=== PATIENT | female | born 1970 | race Caucasian/White ===

== ENCOUNTER 2018-11-09 14:22 | Observation (INO) | payer OTHER ==
[~2018-11-09] VITALS: Ht 167.6 cm; Wt 157.8 kg
[~2018-11-09 14:22] MED LIST: ASPI325 PO; ATOR40TA; Keflex500 MG PO; METF500C; METF500C PO; METO50ER; METO50ER PO; Synthroid50 MCG PO; Synthroid75 MCG; Venlafaxine HCl50 MG PO; ZESTORETIC 20-1 EACH PO
[2018-11-09 15:28] LABS: BASOPHILS ABSOLUTE AUTO 0.06 K/mm3 (0.00-0.23); BASOPHILS PERCENT AUTO 0 % (0-2); EOSINOPHILS ABSOLUTE AUTO 0.07 K/mm3 (0.00-0.68); EOSINOPHILS PERCENT AUTO 0 % (0-6); Hematocrit 44.4 % (33.0-51.0); Hemoglobin 13.9 g/dL (11.5-16.0); IMMATURE GRAN ABSOLUTE AUTO 0.09 K/mm3 (0.00-0.10); IMMATURE GRAN PERCENT AUTO 1 % (0-1); LYMPHOCYTES ABSOLUTE AUTO 2.85 K/mm3 (0.84-5.20); LYMPHOCYTES PERCENT AUTO 17 % (21-46); MONOCYTES PERCENT AUTO 6 % (4-13); Mean Corpuscular HGB 28.2 pg (26.0-34.0); Mean Corpuscular HGB Conc 31.3 g/dL (31.5-36.5); Mean Corpuscular Volume 90 fL (80-100); Mean Platelet Volume 9.3 fL (9.1-12.4); NEUTROPHILS ABSOLUTE AUTO 12.52 K/mm3 (1.96-9.15); NEUTROPHILS PERCENT AUTO 76 % (41-73); Platelet Count 296 K/mm3 (150-400); RDW Coefficient Variation 14.3 % (11.7-14.2); RDW Standard Deviation 46.5 fL (35.1-46.3); Red Blood Cell Count 4.93 M/mm3 (3.80-5.20); White Blood Cell Count 16.59 K/mm3 (4.00-11.30)
[2018-11-09 15:51] LABS: Alanine Aminotransfer (ALT/SGP 21 U/L (12-78); Albumin, Blood 3.7 g/dL (3.4-5.0); Albumin/Globulin Ratio 0.8 (0.8-1.8); Alk Phos 134 U/L (50-136); Anion Gap 9 mmol/L (6-16); Aspartate Aminotrans (AST/SGOT 22 U/L (12-37); Bilirubin, Total 1.1 mg/dL (0.1-1.0); Blood Urea Nitrogen 15 mg/dL (8-24); Bun/Creatinine Ratio 19.8 (12.0-20.0); CO2, Blood 29 mmol/L (21-32); Calcium, Blood 9.2 mg/dL (8.5-10.1); Chloride, Blood 100 mmol/L (98-108); Creatinine, Blood 0.76 mg/dL (0.40-1.00); Globulin, Blood 4.5 g/dL (2.2-4.0); Glomerular Filtration Rate >60 (60-); Glucose, Blood 201 mg/dL (70-99); Potassium, Blood 4.1 mmol/L (3.5-5.5); Sodium, Blood 138 mmol/L (136-145); Total Protein, Blood 8.2 g/dL (6.4-8.2)
[2018-11-09] MEDS ORDERED: TRAZ50 PO (16:55)
[2018-11-09] MEDS ORDERED: PANT40 PO (16:55)
[2018-11-09] MEDS ORDERED: MONT10T PO (16:55)
[2018-11-09 16:57] LABS: Source, Urine Clean Catch
[2018-11-09 17:15] LABS: Appearance, Urine Clear (Clear); Bilirubin, Urine Neg (Neg); Blood, Urine 1+ (Neg); Color, Urine Yellow (P-Yellow); Glucose Qualitative, Urine Neg (Neg); Ketones, Urine Neg (Neg); Leukocyte Esterase, Urine Neg (Neg); Nitrite, Urine Neg (Neg); Protein, Urine 3+ (Neg); Urobilinogen, Urine NORM (Normal)
[2018-11-09 17:42] LABS: Amorphous Light ({null, 0-Heavy}); Bacteria Mod /hpf; Squamous Epithelial Cells Mod /hpf (Few)
[2018-11-09] MEDS ORDERED: ASPI81CH PO (22:40)
[2018-11-10 05:02] LABS: BASOPHILS ABSOLUTE AUTO 0.05 K/mm3 (0.00-0.23); BASOPHILS PERCENT AUTO 1 % (0-2); EOSINOPHILS ABSOLUTE AUTO 0.09 K/mm3 (0.00-0.68); EOSINOPHILS PERCENT AUTO 1 % (0-6); Hematocrit 39.7 % (33.0-51.0); Hemoglobin 12.1 g/dL (11.5-16.0); IMMATURE GRAN ABSOLUTE AUTO 0.04 K/mm3 (0.00-0.10); IMMATURE GRAN PERCENT AUTO 0 % (0-1); LYMPHOCYTES ABSOLUTE AUTO 3.01 K/mm3 (0.84-5.20); LYMPHOCYTES PERCENT AUTO 28 % (21-46); MONOCYTES ABSOLUTE AUTO 0.87 K/mm3 (0.16-1.47); MONOCYTES PERCENT AUTO 8 % (4-13); Mean Corpuscular HGB 28.7 pg (26.0-34.0); Mean Corpuscular HGB Conc 30.5 g/dL (31.5-36.5); Mean Corpuscular Volume 94 fL (80-100); Mean Platelet Volume 9.5 fL (9.1-12.4); NEUTROPHILS ABSOLUTE AUTO 6.78 K/mm3 (1.96-9.15); NEUTROPHILS PERCENT AUTO 63 % (41-73); Platelet Count 237 K/mm3 (150-400); RDW Coefficient Variation 14.6 % (11.7-14.2); RDW Standard Deviation 49.9 fL (35.1-46.3); Red Blood Cell Count 4.22 M/mm3 (3.80-5.20); White Blood Cell Count 10.84 K/mm3 (4.00-11.30)
[2018-11-10 05:43] LABS: Anion Gap 9 mmol/L (6-16); Blood Urea Nitrogen 14 mg/dL (8-24); Bun/Creatinine Ratio 18.9 (12.0-20.0); CO2, Blood 27 mmol/L (21-32); Calcium, Blood 8.2 mg/dL (8.5-10.1); Chloride, Blood 104 mmol/L (98-108); Creatinine, Blood 0.74 mg/dL (0.40-1.00); Glomerular Filtration Rate >60 (60-); Glucose, Blood 188 mg/dL (70-99); Sodium, Blood 140 mmol/L (136-145)
--- NOTE | 2018-11-10 05:50 | NUR ---
SHIFT SUMMARY PT ARRIVED TO ROOM APPROX 2200 OR SO. A/O INDEPENDENT TO BA. TRIED CPAP C 2L BLED IN FOR A LITTLE BIT BUT COUDN'T TOLERATE IT AND TOOK IT OFF. DESATS WHEN SLEEPING SO PUT 2L NC ON TO MAINTAIN SATS >90. NO C/O PAIN. MID ABD RED RASH LOOKING.
--- NOTE | 2018-11-10 08:46 | NUR ---
ASSUMED CRE OF PT- BEDSIDE REPORT COMPLETE WITH NIGHT SAVITA LOVE. PER REPORT PT ADMITTED FOR CELLULITIS OF THE ABD. PT SHOWED STAFF THE RED HOT AREA ON HER ABD. PT HAS ORDERS FOR PO AND IV ABX. PT HAS Hx HTN MEDICATED WITH MORNING BP MEDS. PT STATED SHE DOES NOT HAVE ANY YEAST IN THE ABD FOLDS, STATED SHE CLEANS DAILY AND USES TALCOM POWDER IN THE FOLDS. NOTED AN ODOR THAT SMELLED LIKE YEAST.
[2018-11-10] MEDS ORDERED: LEVSOD100 PO (10:09)
[2018-11-10] MEDS ORDERED: METF500C PO (10:10)
[2018-11-10] MEDS ORDERED: Bactrim 400-801 EACH PO (10:11)
--- NOTE | 2018-11-10 10:51 | NUR ---
DISCHARGE NOTE- PT WAS GIVEN VERBAL AND WRITTEN DISCHARGE INSTRUCTIONS AND ACKNOWLEDGED UNDERSTANDING OF THEM. IV DC'D AT THAT TIME. 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 PT WILL BE ESCORTED OUT VIA WC BY STAFF WHEN HER FAMILY ARRIVES.
== END 2018-11-10 11:12 | disposition home or self-care (01) ==
LOC: ER 14:22 → MEDS 14:23 → ENPENDDIS 11-10 09:30 → MEDS 11-10 11:12
PROVIDERS: Physician Assistant; ADMIT Hospitalist
DX: L03.316 Cellulitis of umbilicus (principal); G47.30 Sleep apnea, unspecified; E11.9 Type 2 diabetes mellitus without complications; E03.9 Hypothyroidism, unspecified; I10 Essential (primary) hypertension; K21.9 Gastro-esophageal reflux disease without esophagitis; F32.9 Major depressive disorder, single episode, unspecified; F41.9 Anxiety disorder, unspecified; Z79.899 Other long term (current) drug therapy; Z79.82 Long term (current) use of aspirin; Z23 Encounter for immunization
CPT/HCPCS: 36415; 74177; 80048; 80053; 81001; 82947; 84443; 85025; 87086; 90686; 94660; 96361; 96365; 96366; 96372; 96376; 99285-25; G0008; G0378; J0690; J1650; J7030; J7050; Q9967

== ENCOUNTER 2019-12-06 13:47 | Emergency (ER) | payer OTHER ==
[~2019-12-06] VITALS: Ht 172.7 cm; Wt 145.2 kg
[~2019-12-06 13:47] MED LIST changes: +ASPI81CH PO; +Bactrim 400-801 EACH PO; +LEVSOD100 PO; +MONT10T PO; +PANT40 PO; +TRAZ50 PO
[2019-12-06] MEDS ORDERED: Monodox100 MG PO (14:54)
== END 2019-12-06 15:29 | disposition home or self-care (01) ==
LOC: ER 13:47
DX: L02.811 Cutaneous abscess of head [any part, except face] (principal); L02.01 Cutaneous abscess of face; L02.11 Cutaneous abscess of neck; Z79.899 Other long term (current) drug therapy; Z79.82 Long term (current) use of aspirin; Z79.84 Long term (current) use of oral hypoglycemic drugs; G47.30 Sleep apnea, unspecified; I10 Essential (primary) hypertension; E11.9 Type 2 diabetes mellitus without complications; Z87.891 Personal history of nicotine dependence
CPT/HCPCS: 10060; 99283-25

== ENCOUNTER 2021-02-07 17:33 | Inpatient (IN) | payer OTHER ==
[~2021-02-07] VITALS: Ht 167.6 cm; Wt 148.0 kg
[~2021-02-07 17:33] MED LIST changes: +Monodox100 MG PO
[2021-02-07 18:54] LABS: BASOPHILS ABSOLUTE AUTO 0.09 K/mm3 (0.00-0.23); BASOPHILS PERCENT AUTO 1 % (0-2); EOSINOPHILS ABSOLUTE AUTO 0.13 K/mm3 (0.00-0.68); EOSINOPHILS PERCENT AUTO 1 % (0-6); Hematocrit 43.1 % (33.0-51.0); IMMATURE GRAN ABSOLUTE AUTO 0.15 K/mm3 (0.00-0.10); IMMATURE GRAN PERCENT AUTO 1 % (0-1); LYMPHOCYTES ABSOLUTE AUTO 3.77 K/mm3 (0.84-5.20); LYMPHOCYTES PERCENT AUTO 21 % (21-46); MONOCYTES ABSOLUTE AUTO 1.63 K/mm3 (0.16-1.47); MONOCYTES PERCENT AUTO 9 % (4-13); Mean Corpuscular HGB 28.7 pg (26.0-34.0); Mean Corpuscular HGB Conc 32.5 g/dL (31.5-36.5); Mean Corpuscular Volume 88 fL (80-100); NEUTROPHILS ABSOLUTE AUTO 11.92 K/mm3 (1.96-9.15); NEUTROPHILS PERCENT AUTO 68 % (41-73); NRBC ABSOLUTE 0.02 K/mm3 (0.00-0.02); NRBC Auto 0.1 /100 WBC (0.0-0.2); Platelet Count 361 K/mm3 (150-400); RDW Coefficient Variation 13.9 % (11.7-14.2); RDW Standard Deviation 45.2 fL (35.1-46.3); Red Blood Cell Count 4.88 M/mm3 (3.80-5.20); White Blood Cell Count 17.69 K/mm3 (4.00-11.30)
[2021-02-07 19:25] LABS: Alanine Aminotransfer (ALT/SGP 16 U/L (12-78); Albumin, Blood 3.1 g/dL (3.4-5.0); Albumin/Globulin Ratio 0.6 (0.8-1.8); Alk Phos 178 U/L (50-136); Anion Gap 5 mmol/L (6-16); Aspartate Aminotrans (AST/SGOT 38 U/L (12-37); Bilirubin, Total 1.1 mg/dL (0.1-1.0); Blood Urea Nitrogen 10 mg/dL (8-24); Bun/Creatinine Ratio 10.7 (12.0-20.0); CO2, Blood 29 mmol/L (21-32); Calcium, Blood 9.3 mg/dL (8.5-10.1); Chloride, Blood 97 mmol/L (98-108); Creatinine, Blood 0.93 mg/dL (0.40-1.00); Globulin, Blood 5.1 g/dL (2.2-4.0); Glomerular Filtration Rate >60 (60-); Glucose, Blood 460 mg/dL (70-99); Potassium, Blood 4.4 mmol/L (3.5-5.5); Sodium, Blood 131 mmol/L (136-145); Total Protein, Blood 8.2 g/dL (6.4-8.2)
[2021-02-07] MEDS ORDERED: METF500 PO (20:02)
[2021-02-07] MEDS ORDERED: TRAM50 PO (20:03)
[2021-02-07] MEDS ORDERED: ALBU90OI INH (20:05)
[2021-02-07] MEDS ORDERED: Flovent 220 Ora12 GM INH (20:05)
[2021-02-07 23:02] LABS: Source, Urine Catheter
[2021-02-07 23:05] LABS: Bilirubin, Urine Neg (Neg); Blood, Urine 1+ (Neg); Glucose Qualitative, Urine 4+ (Neg); Ketones, Urine 1+ (Neg); Leukocyte Esterase, Urine Neg (Neg); Nitrite, Urine Neg (Neg); Protein, Urine 2+ (Neg); Urobilinogen, Urine NORM (Normal)
--- NOTE | 2021-02-07 23:06 | NUR ---
REPORT RECIEVED FROM MITUL DURBIN RN AT 2305 AND AWAITING PT ARRIVAL TO ROOM 356.
[2021-02-07 23:10] LABS: Appearance, Urine Clear (Clear); Color, Urine Yellow (P-Yellow)
[2021-02-07 23:11] LABS: Bacteria Mod /hpf; Red Blood Cells, Urine 0-2 /hpf (0-2); Squamous Epithelial Cells Mod /hpf (Few)
--- NOTE | 2021-02-07 23:20 | NUR ---
PT T/F TO ROOM 356 VIA MACIEJ AT 2316. SHE'S A/OX4, SPECIFIES NEEDS AND DEMONSTRATED ABILITY TO SAFELY AMBULATE IN ROOM AD LACHO. PT ORIENTED TO ROOM AND CALL SYSTEM AND AWARE TO CALL FOR ASSIST PRN. WILL COMPLETE ADMISSION AND WOUND/ABSCESS DOCUMENTATION MOMENTARILY. PT DENIES CURRENT NEEDS.
[2021-02-07] MEDS ORDERED: ASPI81CH PO (23:57)
[2021-02-07] MEDS ORDERED: LORA10ER PO (23:57)
--- NOTE | 2021-02-08 00:03 | NUR ---
CBG 360 IN ER. OT NABEEL RECIEVED PER RX AT 2347 BUT WILL DISCUSS W/MANAGER FINANCIAL THE POSSIBLE NEED TO ALERT MD FOR NOVOLOG COVERAGE. PT NPO BUT ADMITS THAT'S STILL HIGH FOR HER. PT ALSO USES ALBUTEROL AND PRO AIR AT HOME AND ARRIVES WHEEZY AND SOB W/MINIMAL EXERTION. WILL ATTEMPT TO OBTAIN BD PROTOCOL WELL.
--- NOTE | 2021-02-08 00:05 | NUR ---
BD PROTOCOL OBTAINED, RT AWARE.
--- NOTE | 2021-02-08 01:40 | NUR ---
RX'D 10 UNITS NOVOLOG COVERAGE X1 FOR CBG REMAINING ELEVATED, NOW 346. ULTRAM ALSO ORDERED FOR CHRONIC BACK PAIN PER HOME REGIMEN. INSULIN AND PAIN MED RECIEVED, WILL CONTINUE Q6H CBG MONITORING FOR NPO STATUS.
--- NOTE | 2021-02-08 04:41 | NUR ---
SUMMARY: PT A/OX4, INDEPENDENT IN ROOM AND SPECIFIES NEEDS. ABSCESSES NOTED TO ANTERIOR MIDLINE OF THROAT, L.SIDE OF BACK AND L.BREAST. SHE REPORTS SPIDER BITE TO BACK DAYS AGO AND IS UNSURE OF CAUSE FOR THROAT AND BREAST ABSCESSES. ALL ARE SWOLLEN, RED, WARM AND SCABBED. THE ABSCESS TO HER BACK IS THE MOST SEVERE, W/PARTIALLY OPEN WOUND BED WEEPING SCANT AMT OF SEROSANG DRAINAGE. PHOTOS TAKEN W/WOUND DOCUMENTATION COMPLETED. ENT CX CALLED TO ANS SERVICE AND PT NPO PER ORDER. IV ABX RECIEVED AND NS COMMENCED AT 100 ML/HR X1 BAG. SHE REPORTS PAIN TO SITES AND CHRONIC BACK/HIP PAIN. ULTRAM RX'D AND RECIEVED PER HOME REGIMEN FOR TOLERABLE RELIEF. CBG'S ELEVATED THIS SHIFT. Q6H MONITORING IN PLACE FOR NPO STATUS. SEMGLEE 15 UNITS OT AND NOVOLOG 10 UNITS OT RX'D AND RECIEVED. PT TO COMMENCE NOVOLOG FATOU THIS AM. PT SOB W/EXERTION AND WHEEZING UPON ARRIVAL. BD PROTOCOL OBTAINED AND RT PROVIDED INHALER PRN. PT HAS SLEEP APNEA AT BASELINE BUT DOESN'T TOLERATE CPAP. SHE ALSO HAS USED O2 AT TIMES BUT DOESN'T HAVE RX AT PRESENT. SPO2 WNL ON RA. NO ACUTE CHANGES, VSS/AFEBRILE. WCTM AND REPORT TO DAY RN.
[2021-02-08 05:19] LABS: BASOPHILS ABSOLUTE AUTO 0.07 K/mm3 (0.00-0.23); BASOPHILS PERCENT AUTO 1 % (0-2); Hematocrit 38.8 % (33.0-51.0); Hemoglobin 12.2 g/dL (11.5-16.0); LYMPHOCYTES ABSOLUTE AUTO 2.95 K/mm3 (0.84-5.20); LYMPHOCYTES PERCENT AUTO 21 % (21-46); MONOCYTES PERCENT AUTO 11 % (4-13); Mean Corpuscular HGB 28.2 pg (26.0-34.0); Mean Corpuscular HGB Conc 31.4 g/dL (31.5-36.5); Mean Corpuscular Volume 90 fL (80-100); Mean Platelet Volume 9.9 fL (9.1-12.4); Platelet Count 283 K/mm3 (150-400); RDW Standard Deviation 46.7 fL (35.1-46.3); Red Blood Cell Count 4.32 M/mm3 (3.80-5.20); White Blood Cell Count 14.31 K/mm3 (4.00-11.30)
[2021-02-08 05:35] LABS: EOSINOPHILS PERCENT AUTO 1 % (0-6); IMMATURE GRAN PERCENT AUTO 1 % (0-1); NEUTROPHILS ABSOLUTE AUTO 9.49 K/mm3 (1.96-9.15); NEUTROPHILS PERCENT AUTO 66 % (41-73)
[2021-02-08 05:44] LABS: Alanine Aminotransfer (ALT/SGP 16 U/L (12-78); Albumin, Blood 2.6 g/dL (3.4-5.0); Albumin/Globulin Ratio 0.6 (0.8-1.8); Alk Phos 153 U/L (50-136); Anion Gap 6 mmol/L (6-16); Aspartate Aminotrans (AST/SGOT 16 U/L (12-37); Blood Urea Nitrogen 11 mg/dL (8-24); Bun/Creatinine Ratio 12.3 (12.0-20.0); CO2, Blood 30 mmol/L (21-32); Calcium, Blood 8.4 mg/dL (8.5-10.1); Chloride, Blood 98 mmol/L (98-108); Globulin, Blood 4.5 g/dL (2.2-4.0); Glomerular Filtration Rate >60 (60-); Glucose, Blood 364 mg/dL (70-99); Potassium, Blood 3.7 mmol/L (3.5-5.5); Sodium, Blood 134 mmol/L (136-145); Total Protein, Blood 7.1 g/dL (6.4-8.2)
--- NOTE | 2021-02-08 13:05 | NUR ---
Patient is lying in bed and alert. Patient tells me about her medical issues and the procedure that will take place today to deal with it. She then shares at length about her family unit complications. She talks about the of one of her sons to suicide, her mother's and the divorve from her of 27 yrs. She also shares about her living son who is schizophrenive disorder. I normalize patient's experience and provide therapeutic listening, grief support, spiritual guidance and prayer. Patient responds well and shows signs of catharsis and being encouraged. I will continue to remain available to patient and family.
[2021-02-08 13:08] LABS: Influenza A, PCR NEGATIVE (NEGATIVE); Influenza B, PCR NEGATIVE (NEGATIVE); Resp Syncytial Virus, PCR NEGATIVE (NEGATIVE); SARS-Cov-2 (COVID-19) PCR, MMC NEGATIVE (NEGATIVE)
--- NOTE | 2021-02-08 14:25 | NUR ---
History, Chart, Medications and Allergies reviewed before start of procedure. Lungs clear T/O to Auscultation. Patient confirms NPO status and agrees with scheduled surgery. Pre-Op teaching done. Pt verbalizes understanding.
--- NOTE | 2021-02-08 18:30 | NUR ---
PT A+0X4. PT PLEASANT AND COOPERTIVE TO CARE. WOUND SURGERY THIS AM TO DRAIN ABCESSES ON NECK AND BACK. STABLE VITALS FOLLOWING SURGERY AND REPORTING MINIMAL PAIN. PT INDEPENDENT TO BATHROOM AND ADLS. HIGH INSULIN LEVELS IN MORNING AND THROUGHOUT DAY MANAGED PER EMAR. PT LET IN BED WITH CALL ALARM AT SIDE
--- NOTE | 2021-02-08 18:36 | NUR ---
THIS LABORATORY IMMUNOLOGIST AGREES WITH PREVIOUS SHIFT SUMMARY BY STUDENT.
--- NOTE | 2021-02-09 05:19 | NUR ---
MAGNETOMETER OPERATOR SUMMARY PT AAOX4 AND INDEPENDENT IN ROOM. PLEASANT AND COOPERATIVE. GAUZE DRESSING CHANGED ON DRAINED ABCESS SITES ON NECK AND BACK, PREVIOUS DRESSINGS WERE SATURATED. VSS, WILL CONTINUE TO MONITOR.
[2021-02-09 08:47] LABS: BASOPHILS ABSOLUTE AUTO 0.08 K/mm3 (0.00-0.23); BASOPHILS PERCENT AUTO 1 % (0-2); EOSINOPHILS ABSOLUTE AUTO 0.64 K/mm3 (0.00-0.68); EOSINOPHILS PERCENT AUTO 6 % (0-6); Hematocrit 36.2 % (33.0-51.0); Hemoglobin 11.4 g/dL (11.5-16.0); IMMATURE GRAN ABSOLUTE AUTO 0.12 K/mm3 (0.00-0.10); IMMATURE GRAN PERCENT AUTO 1 % (0-1); LYMPHOCYTES PERCENT AUTO 23 % (21-46); MONOCYTES ABSOLUTE AUTO 1.04 K/mm3 (0.16-1.47); MONOCYTES PERCENT AUTO 9 % (4-13); Mean Corpuscular HGB 28.4 pg (26.0-34.0); Mean Corpuscular HGB Conc 31.5 g/dL (31.5-36.5); Mean Corpuscular Volume 90 fL (80-100); Mean Platelet Volume 9.9 fL (9.1-12.4); NEUTROPHILS ABSOLUTE AUTO 6.75 K/mm3 (1.96-9.15); NEUTROPHILS PERCENT AUTO 60 % (41-73); Platelet Count 288 K/mm3 (150-400); RDW Coefficient Variation 14.3 % (11.7-14.2); RDW Standard Deviation 47.5 fL (35.1-46.3); Red Blood Cell Count 4.01 M/mm3 (3.80-5.20); White Blood Cell Count 11.23 K/mm3 (4.00-11.30)
[2021-02-09 09:15] LABS: Anion Gap 7 mmol/L (6-16); Blood Urea Nitrogen 21 mg/dL (8-24); Bun/Creatinine Ratio 7.6 (12.0-20.0); CO2, Blood 26 mmol/L (21-32); Calcium, Blood 7.9 mg/dL (8.5-10.1); Chloride, Blood 98 mmol/L (98-108); Creatinine, Blood 2.77 mg/dL (0.40-1.00); Glomerular Filtration Rate 19 (60-); Glucose, Blood 417 mg/dL (70-99); Potassium, Blood 3.9 mmol/L (3.5-5.5); Sodium, Blood 131 mmol/L (136-145)
[2021-02-09 09:22] LABS: Vancomycin, Trough 30.8 ug/mL (5.0-10.0)
--- NOTE | 2021-02-09 09:59 | NUR ---
CHANGED PT'S BANDAGE ON NECK AND BACK. BOTH HAD MODERATE SANGUINEOUS FLUID WITH BOTH DRESSINGS. REDNESS AND HEAT CONTINUE ON OUTER AREA OF BOTH WOUNDS. WILL CONTINUE TO MONITOR.
[2021-02-09 15:41] LABS: Bun/Creatinine Ratio 7.8 (12.0-20.0); Creatinine, Blood 3.34 mg/dL (0.40-1.00); Potassium, Blood 4.3 mmol/L (3.5-5.5)
--- NOTE | 2021-02-09 17:00 | NUR ---
SHIFT SUMMARY PT A+OX4. WOUND DRESSING CHANGED X2 TODAY ON NECK AND BACK. PATIENT HAD INCONTINENCE THIS AM AFTER YESTERDAYS SURGERY. WAS ABLE TO VOID EARLY AFTERNOON IV CHANGED FROM RIGHT AC TO LEFT ARM. GLUCOSE LEVELS HIGH THROUGHOUT DAY. CONTINUE TO MONITOR CBGS LONG ACTING INSULIN PRESCRIBED AT NIGHTTIME TO HELP MANAGE. PT LEFT IN BED RESTING, WAS PLEASANT AND COOPERATIVE TO CARE.
--- NOTE | 2021-02-09 18:42 | NUR ---
THIS LANG PATH THERAPIST AGREES WITH PREVIOUS SHIFT SUMMARY BY STUDENT NURSE.
[2021-02-10 05:01] LABS: Hematocrit 37.1 % (33.0-51.0); Hemoglobin 11.6 g/dL (11.5-16.0); Mean Corpuscular HGB 28.2 pg (26.0-34.0); Mean Corpuscular HGB Conc 31.3 g/dL (31.5-36.5); Mean Corpuscular Volume 90 fL (80-100); Mean Platelet Volume 9.7 fL (9.1-12.4); Platelet Count 286 K/mm3 (150-400); RDW Coefficient Variation 14.1 % (11.7-14.2); RDW Standard Deviation 46.9 fL (35.1-46.3); Red Blood Cell Count 4.11 M/mm3 (3.80-5.20); White Blood Cell Count 9.69 K/mm3 (4.00-11.30)
--- NOTE | 2021-02-10 05:03 | NUR ---
SHIFT SUMMARY PT HAD A MOSTLY UNEVENTFUL NIGHT. SLEPT MUCH OF THE NIGHT. DRESSING TO MID LEFT BACK AND NECK CHANGED X 1 THIS SHIFT. MODERATE AMOUNT OF PURULENT DRAINAGE TO ADITI DRAINS WITH WOUNDS. TISSUE SURROUNDING WOUNDS RED AND SWOLLEN. PT REPORTED HAVING A YEAST INFECTION, COMMON TO HER WHEN RECIEVING ANTIBIOTICS. WILL HAVE DAY RN MENTION TO HOSPITALIST. PAIN REPORTED TO WOUND SITES. MEDICATED X 1 W/ 50 MG ULTRAM WITH GOOD EFFECT. PT AFEBRILE. VITAL SIGNS STABLE. WILL CONTINUE TO MONITOR AND REPORT TO DAY RN.
[2021-02-10 05:23] LABS: Albumin, Blood 2.4 g/dL (3.4-5.0); Anion Gap 8 mmol/L (6-16); Blood Urea Nitrogen 32 mg/dL (8-24); Bun/Creatinine Ratio 7.7 (12.0-20.0); CO2, Blood 25 mmol/L (21-32); Calcium, Blood 8.4 mg/dL (8.5-10.1); Chloride, Blood 99 mmol/L (98-108); Creatinine, Blood 4.17 mg/dL (0.40-1.00); Glomerular Filtration Rate 12 (60-); Glucose, Blood 281 mg/dL (70-99); Phosphorus, Blood 6.3 mg/dL (2.5-4.9); Sodium, Blood 132 mmol/L (136-145); Thyroxine (T4) 7.6 ug/dL (4.8-13.9); Vancomycin, Random 24.9 ug/mL
[2021-02-10 06:26] LABS: Source, Urine Voided
[2021-02-10 06:30] LABS: Bilirubin, Urine Neg (Neg); Blood, Urine 4+ (Neg); Glucose Qualitative, Urine 1+ (Neg); Ketones, Urine Neg (Neg); Leukocyte Esterase, Urine 3+ (Neg); Nitrite, Urine Neg (Neg); Protein, Urine 3+ (Neg); Specific Gravity, Urine 1.015 (1.003-1.022); Urobilinogen, Urine NORM (Normal)
[2021-02-10 06:36] LABS: Appearance, Urine Cloudy (Clear); Color, Urine Yellow (P-Yellow)
[2021-02-10 06:37] LABS: Bacteria Mod /hpf; Squamous Epithelial Cells Many /hpf (Few)
--- NOTE | 2021-02-10 13:46 | NUR ---
NEW ABCESS CALL TO DR. CLARK TO INFORM OF NEW ABCESS UNDER LEFT BUTTOCK. DR. CLARK TO ASSESS THIS AFTERNOON WHEN HE ROUNDS ON PATIENT.
[2021-02-10 15:28] LABS: Albumin, Blood 2.7 g/dL (3.4-5.0); Anion Gap 5 mmol/L (6-16); Blood Urea Nitrogen 37 mg/dL (8-24); Bun/Creatinine Ratio 8.1 (12.0-20.0); CO2, Blood 29 mmol/L (21-32); Chloride, Blood 99 mmol/L (98-108); Creatinine, Blood 4.56 mg/dL (0.40-1.00); Glomerular Filtration Rate 11 (60-); Glucose, Blood 212 mg/dL (70-99); Phosphorus, Blood 6.6 mg/dL (2.5-4.9); Potassium, Blood 4.2 mmol/L (3.5-5.5); Sodium, Blood 133 mmol/L (136-145)
--- NOTE | 2021-02-10 17:02 | NUR ---
SHIFT SUMMARY PATIENT MEDICATED X1 FOR PAIN, DENIES NAUSEA, AND SHORTNESS OF BREATH. UP INDEPENDENT IN ROOM. DRESSINGS ON ABCESSES CHANGED TODAY AFTER SHOWER. CALL TO DR. CLARK TO INFORM OF NEW CLOSED ABCESS ON LEFT GLUTTEAL CREASE. DR. OLIVO CONSULTED ON PATIENT, NEW ORDERS FOR CONTINUOUS FLUIDS. ALERT AND OREINTED. PLEASANT AND COOPERATIVE WITH CARE.
--- NOTE | 2021-02-11 05:19 | NUR ---
SHIFT SUMMARY PT SLEPT MUCH OF THIS EVENING. DRESSINGS TO DRAIN SITES ON LEFT MID BACK AND LOWER NECK REMAINED C/D/I. DRESSINGS CHANGED BY MD LATE IN PREVIOUS SHIFT. PT CONTINUES TO HAVE PAIN AT ABSCESS SITES BUT DECLINED ANY PAIN MEDICATION THIS EVENING. REPORTING THAT LAST TIME SHE TOOK THE ULTRAM SHE FELT DIZZY AND SICK AFTERWARDS. NO ACUTE CHANGES THIS EVENING. VITAL SIGNS STABLE. WILL CONTINUE TO MONITOR AND REPORT TO DAY RN.
[2021-02-11 07:10] LABS: COMPLEMENT C3, SERUM 212 mg/dL (82-167); COMPLEMENT C4, SERUM 30 mg/dL (12-38)
[2021-02-11 07:22] LABS: BASOPHILS ABSOLUTE AUTO 0.06 K/mm3 (0.00-0.23); BASOPHILS PERCENT AUTO 1 % (0-2); EOSINOPHILS PERCENT AUTO 5 % (0-6); Hematocrit 38.8 % (33.0-51.0); Hemoglobin 12.1 g/dL (11.5-16.0); IMMATURE GRAN ABSOLUTE AUTO 0.15 K/mm3 (0.00-0.10); IMMATURE GRAN PERCENT AUTO 2 % (0-1); LYMPHOCYTES ABSOLUTE AUTO 2.27 K/mm3 (0.84-5.20); LYMPHOCYTES PERCENT AUTO 23 % (21-46); MONOCYTES ABSOLUTE AUTO 0.81 K/mm3 (0.16-1.47); MONOCYTES PERCENT AUTO 8 % (4-13); Mean Corpuscular HGB 28.1 pg (26.0-34.0); Mean Corpuscular HGB Conc 31.2 g/dL (31.5-36.5); Mean Corpuscular Volume 90 fL (80-100); Mean Platelet Volume 9.8 fL (9.1-12.4); NEUTROPHILS ABSOLUTE AUTO 6.21 K/mm3 (1.96-9.15); NEUTROPHILS PERCENT AUTO 62 % (41-73); Platelet Count 331 K/mm3 (150-400); RDW Coefficient Variation 13.9 % (11.7-14.2); RDW Standard Deviation 46.2 fL (35.1-46.3)
[2021-02-11 07:40] LABS: Albumin, Blood 2.5 g/dL (3.4-5.0); Anion Gap 8 mmol/L (6-16); Blood Urea Nitrogen 41 mg/dL (8-24); CO2, Blood 23 mmol/L (21-32); Calcium, Blood 8.8 mg/dL (8.5-10.1); Chloride, Blood 103 mmol/L (98-108); Creatinine, Blood 4.56 mg/dL (0.40-1.00); Glomerular Filtration Rate 11 (60-); Glucose, Blood 235 mg/dL (70-99); Phosphorus, Blood 6.4 mg/dL (2.5-4.9); Potassium, Blood 4.6 mmol/L (3.5-5.5); Sodium, Blood 134 mmol/L (136-145)
--- NOTE | 2021-02-11 18:20 | NUR ---
SHIFT SUMMARY- DR EAST CAME TO SEE THE PT THIS MORNING AND REMOVED THE ADITI DRAINS AND REDRESSED THE WOUNDS. HE REQUESTED STAFF ASSIST THE PT WASHTING OUT THE WOUNDS IN THE SHOWER AND REDRESSING THEM. THIS WAS DONE LATER IN THE AFTERNOON. PT STATES SHE IS FEELING SOME LOWER BACK PAIN THIS EVENING AND SHE DECLINES PAIN MEDICATION AT THIS TIME. PT INDEPENDENT TO THE BATHROOM. DR OLIVO CAME TO SEE THE PT THIS MORNING AND REQUESTED STRICT I&O'S. SHE STATED AT LEAST A COUPLE MORE DAYS, THE HOPE IS RENAL FUNCTION WILL IMPROVE. DR EAST STATED SURGICAL WILL NOT SEE HER OVER THE WEEKEND. DRESSING CHANGES DAILY NEEDED. SHOWERS DAILY PT WILL TOLLERATE. WILL CTM AND PASS ON IN BEDSIDE REPORT TO NIGHT RN.
[2021-02-12 05:00] LABS: Hematocrit 37.6 % (33.0-51.0); Hemoglobin 12.1 g/dL (11.5-16.0); Mean Corpuscular HGB 28.5 pg (26.0-34.0); Mean Corpuscular HGB Conc 32.2 g/dL (31.5-36.5); Mean Corpuscular Volume 89 fL (80-100); Mean Platelet Volume 9.3 fL (9.1-12.4); Platelet Count 319 K/mm3 (150-400); RDW Coefficient Variation 13.8 % (11.7-14.2); RDW Standard Deviation 44.7 fL (35.1-46.3); Red Blood Cell Count 4.24 M/mm3 (3.80-5.20); White Blood Cell Count 11.88 K/mm3 (4.00-11.30)
[2021-02-12 05:36] LABS: Albumin, Blood 2.2 g/dL (3.4-5.0); Anion Gap 8 mmol/L (6-16); Blood Urea Nitrogen 46 mg/dL (8-24); Bun/Creatinine Ratio 10.6 (12.0-20.0); CO2, Blood 20 mmol/L (21-32); Calcium, Blood 8.6 mg/dL (8.5-10.1); Chloride, Blood 107 mmol/L (98-108); Creatinine, Blood 4.34 mg/dL (0.40-1.00); Glomerular Filtration Rate 11 (60-); Glucose, Blood 175 mg/dL (70-99); Magnesium, Blood 1.9 mg/dL (1.6-2.4); Phosphorus, Blood 5.7 mg/dL (2.5-4.9); Potassium, Blood 4.7 mmol/L (3.5-5.5); Sodium, Blood 135 mmol/L (136-145); Vancomycin, Random 14.9 ug/mL
--- NOTE | 2021-02-12 05:46 | NUR ---
SHIFT SUMMARY PATIENT ALERT AND ORIENTED. MEDICATED PER EMAR NEEDED FOR PAIN AND NAUSEA. NO COMPLAINTS OF SHORTNESS OF BREATH. NO ACUTE ISSUES NOTED OVERNIGHT. IV PATENT AND FLUSHED. BED IN LOWEST POSITION WITH WHEELS LOCKED AND ALARM ON. CALL LIGHT WITHIN REACH. REPORT GIVEN TO ONCOMING RN.
--- NOTE | 2021-02-12 15:29 | NUR ---
PT AMBULATED TO THE BATHROOM AND WAS AUDIBLY WHEEZY WHEN STAFF ENTERED THE ROOM. CALLED RT TO PROVIDE A BREATHING Tx (PT HAS BEEN DECLINING). O2 SATS WERE 86% PER REPORT FROM HEALTH PLAN ADVISOR AND PT SAT AT EOB FOR A COUPLE OF MINUITES TO GET UP TO 90%. RN CHECKED SATS ONCE PT WAS LAYING IN BED SATS 89%. CALLED DR CORCORAN TO UPDATE HER. PT BP STILL ELEVATED. RECIEVED A CHANGE TO PRN HYDRALIZINE ORDER FOR A TITRATED DOSE 10-20 MG PO FOR SBP GREATER THAN 180. PT DOES NOT APPEAR TO BE IN ANY DISTRESS BUT HER WORK OF BREATHING HAS INCREASED, RT AT THE BEDSIDE PT RECIEVING Tx NOW.
--- NOTE | 2021-02-12 18:22 | NUR ---
SHIFT SUMMARY- PT ALERT, ORIENTED AND INDEPENDENT IN THE ROOM. PT HAS IVF RUNNING AND IS VOIDING LARGE AMOUNTS THIS EVENING. THE HOPE IS THAT KIDNEY FUNCTION WILL IMPROVE ON MORNING LABS. PT BP HAS BEEN ELEVATED NEW BP MEDS ADDED WELL PRN BP MEDS. BG HAS BEEN STABLE. PT DID HAVE AN EPISODE OF SOB TODAY BUT IMPROVED WITH A Tx FROM RT. DR CORCORAN IS AWARE. PT CURRENTLY IN BED SLEEPING NO S&S OF DISTRESS NOTED, PLAN IS FOR PT TO BE HERE A COUPLE MORE DAYS UNTIL CLEARED BY NEPHROLOGY. WILL CTM AND PASS ALL ON IN BEDSIDE REPORT TO NIGHT RN.
[2021-02-13 05:46] LABS: Vancomycin, Random 21.8 ug/mL
--- NOTE | 2021-02-13 06:04 | NUR ---
SHIFT SUMMARY PATIENT ALERT AND ORIENTED. MEDICATED PER EMAR FOR PAIN AND HYPERTENSION. PATIENT GETS SHORT OF BREATH AND WHEEZY WHEN WALKING TO THE RESTROOM AND BACK. PATIENT CONTINUES ON ROOM AIR. IV PATENT AND INFUSING. BED IN LOWEST POSITION WITH WHEELS LOCKED. CALL LIGHT WITHIN REACH. REPORT GIVEN TO ONCOMING RN.
[2021-02-13 08:19] LABS: Bun/Creatinine Ratio 10.6 (12.0-20.0); Calcium, Blood 8.9 mg/dL (8.5-10.1); Creatinine, Blood 4.06 mg/dL (0.40-1.00); Potassium, Blood 4.5 mmol/L (3.5-5.5)
--- NOTE | 2021-02-13 19:53 | NUR ---
SHIFT SUMMARY- PT ALERT, ORIENTED AND INDEPENDENT IN THE ROOM. PT HAS FULL BODY ACHES BUT IS DECLINING PAIN MEDICINE WHEN OFFERED. PT WAS MEDICATED WITH BENADRYL FOR ITCHING. SHE STATED HER BACK WAS VERY ITCHY TODAY. SCHEDULED HYDRALIZINE ADDED WELL THE PRN PT BP'S CONTINUE TO BE ELEVATED. PT RENAL FUNCTION IS IMPROVING SLOWLY. IVF STOPPED. SPOKE TO SHE IS AWARE THE PT HAS BILATERAL CRACKLES IN HER LUNG BASES. NO INCREASED SOB NOTED.
[2021-02-14 05:35] LABS: Anion Gap 6 mmol/L (6-16); Blood Urea Nitrogen 41 mg/dL (8-24); Bun/Creatinine Ratio 10.9 (12.0-20.0); CO2, Blood 24 mmol/L (21-32); Calcium, Blood 9.1 mg/dL (8.5-10.1); Chloride, Blood 108 mmol/L (98-108); Creatinine, Blood 3.76 mg/dL (0.40-1.00); Glomerular Filtration Rate 13 (60-); Glucose, Blood 164 mg/dL (70-99); Sodium, Blood 138 mmol/L (136-145); Vancomycin, Random 17.3 ug/mL
--- NOTE | 2021-02-14 06:31 | NUR ---
SHIFT SUMMARY PATIENT ALERT AND ORIENTED. HAD NO COMPLAINTS OF PAIN OVERNIGHT. WAS ABLE TO SLEEP WELL. PATIENTS LUNGS CONTINUE TO HAVE CRACKLES IN THE BASES. PATIENT EDUCATED ON COUGHING AND DEEP BREATHING EXERCISES TO INCREASE AIR FLOW AND ENCOURAGED PATIENT TO BE UP AND AROUND MORE DURING THE DAY. IV PATENT AND FLUSHED. BED IN LOWEST POSITION WITH WHEELS LOCKED. CALL LIGHT WITHIN REACH. REPORT GIVEN TO ONCOMING RN.
--- NOTE | 2021-02-14 17:22 | NUR ---
SHIFT SUMMARY PATIENT ALERT AND ORIENTED IN THE ROOM THIS SHIFT. PATIENT UP INDEPENDENTLY TO THE BATHROOM. PATIENT ALTERNATES SITTING UP IN BED AND LYING DOWN. PATIENT REMAINS ON ANTIBIOTICS. NO ACUTE CHANGES THIS SHIFT. PATIENT DENIES PAIN. PATIENT CURRENTLY SITTING UP IN BED WATCHING TELEVISION.
--- NOTE | 2021-02-15 04:20 | NUR ---
SHIFT SUMMARY ASSUMED CARE OF PT AT 1900. PT IS A/OX4. HEART SOUNDS REGULAR, LUNG SOUNDS DIMINISHED. PT IS INDEPENDENT TO BATHROOM. PT DID NOT TAKE SHOWER THIS EVENING BECAUSE IT WAS TOO LATE AND SHE WAS COLD, SHE SAID THAT SHE WOULD SHOWER IN THE AM PER DOCTOR REQUEST. DRESSINGS CHANGED, THERE IS YELLOW PURLUENT FLUIDS FROM THE WOUNDS. SKIN AROUND THE WOUNDS ARE HARD AND DISCOLORED. CALL LIGHT IN REACH, BED IN LOWEST POSITON.
[2021-02-15 04:42] LABS: BASOPHILS ABSOLUTE AUTO 0.07 K/mm3 (0.00-0.23); BASOPHILS PERCENT AUTO 1 % (0-2); EOSINOPHILS ABSOLUTE AUTO 0.32 K/mm3 (0.00-0.68); EOSINOPHILS PERCENT AUTO 3 % (0-6); Hematocrit 38.1 % (33.0-51.0); Hemoglobin 12.1 g/dL (11.5-16.0); IMMATURE GRAN ABSOLUTE AUTO 0.26 K/mm3 (0.00-0.10); IMMATURE GRAN PERCENT AUTO 2 % (0-1); LYMPHOCYTES PERCENT AUTO 20 % (21-46); MONOCYTES PERCENT AUTO 9 % (4-13); Mean Corpuscular HGB Conc 31.8 g/dL (31.5-36.5); Mean Corpuscular Volume 88 fL (80-100); Mean Platelet Volume 8.8 fL (9.1-12.4); NEUTROPHILS ABSOLUTE AUTO 7.61 K/mm3 (1.96-9.15); NEUTROPHILS PERCENT AUTO 66 % (41-73); Platelet Count 375 K/mm3 (150-400); RDW Coefficient Variation 14.1 % (11.7-14.2); RDW Standard Deviation 45.6 fL (35.1-46.3); Red Blood Cell Count 4.32 M/mm3 (3.80-5.20); White Blood Cell Count 11.56 K/mm3 (4.00-11.30)
[2021-02-15 05:02] LABS: Bun/Creatinine Ratio 11.2 (12.0-20.0); Calcium, Blood 9.5 mg/dL (8.5-10.1); Creatinine, Blood 3.83 mg/dL (0.40-1.00); Potassium, Blood 4.9 mmol/L (3.5-5.5)
--- NOTE | 2021-02-15 13:30 | NUR ---
STUDENT ASSESSMENT REVIEW I HAVE REVIEWED THE STUDENT'S ASSESSMENT, CONDUCEDED MY OWN ASSESSMENT, AND I AGREE WITH THE STUDENT'S FINDINGS.
--- NOTE | 2021-02-15 18:24 | NUR ---
Shift summary,, Patient was A/OX4 to person, place, time, and event. She has been pleasent and cooperative with her care. She has been independent in the room and up to bathroom multiple time throughout the day. Patient's bp this am >180 systolic and provider notified and made changes to bp medications. BP currently 164/83. She is currently resting in her bed watching TV.
[2021-02-15 18:29] LABS: Source, Urine Voided
[2021-02-15 18:34] LABS: Appearance, Urine Clear (Clear); Bilirubin, Urine Neg (Neg); Blood, Urine 3+ (Neg); Color, Urine Yellow (P-Yellow); Glucose Qualitative, Urine Neg (Neg); Ketones, Urine Neg (Neg); Leukocyte Esterase, Urine Neg (Neg); Nitrite, Urine Neg (Neg); Protein, Urine 2+ (Neg); Urobilinogen, Urine NORM (Normal)
[2021-02-15 18:47] LABS: Bacteria Few /hpf; Squamous Epithelial Cells Few /hpf (Few); White Blood Cells, Urine 0-2 /hpf (0-5)
[2021-02-16 05:12] LABS: BASOPHILS ABSOLUTE AUTO 0.06 K/mm3 (0.00-0.23); BASOPHILS PERCENT AUTO 1 % (0-2); EOSINOPHILS ABSOLUTE AUTO 0.39 K/mm3 (0.00-0.68); EOSINOPHILS PERCENT AUTO 3 % (0-6); Hematocrit 39.6 % (33.0-51.0); Hemoglobin 12.5 g/dL (11.5-16.0); IMMATURE GRAN ABSOLUTE AUTO 0.24 K/mm3 (0.00-0.10); IMMATURE GRAN PERCENT AUTO 2 % (0-1); LYMPHOCYTES ABSOLUTE AUTO 2.62 K/mm3 (0.84-5.20); LYMPHOCYTES PERCENT AUTO 22 % (21-46); MONOCYTES ABSOLUTE AUTO 0.85 K/mm3 (0.16-1.47); MONOCYTES PERCENT AUTO 7 % (4-13); Mean Corpuscular HGB 27.6 pg (26.0-34.0); Mean Corpuscular HGB Conc 31.6 g/dL (31.5-36.5); Mean Corpuscular Volume 87 fL (80-100); Mean Platelet Volume 8.7 fL (9.1-12.4); NEUTROPHILS ABSOLUTE AUTO 7.58 K/mm3 (1.96-9.15); NEUTROPHILS PERCENT AUTO 65 % (41-73); Platelet Count 432 K/mm3 (150-400); RDW Standard Deviation 45.3 fL (35.1-46.3); Red Blood Cell Count 4.53 M/mm3 (3.80-5.20); White Blood Cell Count 11.74 K/mm3 (4.00-11.30)
[2021-02-16 05:44] LABS: Bun/Creatinine Ratio 12.2 (12.0-20.0); Calcium, Blood 10.3 mg/dL (8.5-10.1); Creatinine, Blood 3.68 mg/dL (0.40-1.00); Potassium, Blood 4.6 mmol/L (3.5-5.5)
[2021-02-16] MEDS ORDERED: AMLO10 PO (09:17)
[2021-02-16] MEDS ORDERED: METO100ER PO (09:17)
[2021-02-16] MEDS ORDERED: Acetaminophen325 M1 PO (09:17)
[2021-02-16] MEDS ORDERED: INSULANPEN SC (09:18)
[2021-02-16] MEDS ORDERED: HYDRA25 PO (09:18)
[2021-02-16] MEDS ORDERED: HUMALOG KW100 UNIT/1 SC (09:19)
[2021-02-16] MEDS ORDERED: VISBIOME 112.51 EACH PO (09:19)
[2021-02-16] MEDS ORDERED: VITAMIN D31000 UNI1 PO (09:20)
[2021-02-16] MEDS ORDERED: CLIN300 PO (09:20)
--- NOTE | 2021-02-16 11:32 | NUR ---
PATIENT DISCHARGED, WILL STAY WITH HER AUNT FOR A WHILE SO AUNT CAN DO DRESSING CHANGE ON PT'S BACK. PT DECLINED TO SHOWER SO DRESSINGS COULD BE CHANGED PRIOR TO D/C, SAID SHE WOULD WAIT TO GET HOME. DENIED PAIN. VERBALIZED UNDERSTANDING OF S/C INSTRUCTIONS. HAD NO IV. OFF UNIT VIA W/C AT 1045. NO BELONGINGS LEFT BEHIND IN ROOM.
== END 2021-02-16 10:50 | disposition home or self-care (01) | DRG 854 ==
LOC: ER 17:33 → MEDS 21:55
PROVIDERS: Internal Medicine; Pharmacist; Physician Assistant; Surgery; ADMIT Internal Medicine
PROC: 0J970ZZ Drainage of Back Subcutaneous Tissue and Fascia, Open Approach (ICD-10-PCS; 2021-02-08)
PROC: 0H94XZZ Drainage of Neck Skin, External Approach (ICD-10-PCS; principal; 2021-02-08 12:30)
DX: A41.02 Sepsis due to Methicillin resistant Staphylococcus aureus (principal); N17.9 Acute kidney failure, unspecified; L02.11 Cutaneous abscess of neck; N17.8 Other acute kidney failure; L03.313 Cellulitis of chest wall; J45.901 Unspecified asthma with (acute) exacerbation; Z68.43 Body mass index [BMI] 50.0-59.9, adult; L02.212 Cutaneous abscess of back [any part, except buttock and flank]; J45.909 Unspecified asthma, uncomplicated; E11.9 Type 2 diabetes mellitus without complications; E03.9 Hypothyroidism, unspecified; N14.1 Nephropathy induced by other drugs, medicaments and biological substances; T50.8X5A Adverse effect of diagnostic agents, initial encounter; G47.33 Obstructive sleep apnea (adult) (pediatric); I10 Essential (primary) hypertension; K21.9 Gastro-esophageal reflux disease without esophagitis; Z79.899 Other long term (current) drug therapy; E66.9 Obesity, unspecified; E66.01 Morbid (severe) obesity due to excess calories; Z98.890 Other specified postprocedural states; Z90.49 Acquired absence of other specified parts of digestive tract; Z98.51 Tubal ligation status; Z87.891 Personal history of nicotine dependence
CPT/HCPCS: 0241U; 36415; 70491; 76770; 80048; 80053; 80069; 80202; 81001; 82550; 82947; 83036; 83605; 83735; 84436; 84443; 85025; 85027; 86160; 87040; 87070; 87075; 87077; 87086; 87147; 87186; 87205; 93005; 93010; 93306; 94640; 94760; 96365; 99285-25; A9270; J0696; J1644; J2250; J2405; J2543; J2704; J2765; J3010; J3370; J7030; J7050; J7120; Q9967